=== PATIENT | female | born 1935 | race Caucasian/White ===

== ENCOUNTER 2021-10-22 09:24 | Outpatient (CLI) | payer MEDICARE, OTHER | END 2021-10-22 09:25 | disposition home or self-care (01) | LOC: NAV RAD 09:24 | PROVIDERS: ATTEND Family Medicine | DX: R05.9 Cough, unspecified (principal) | CPT/HCPCS: 71046 ==

== ENCOUNTER 2022-02-23 09:02 | Emergency (ER) | payer MEDICARE, OTHER ==
[2022-02-23] MEDS ORDERED: predniSONE 20 MG TAB ONE (10:38)
== END 2022-02-23 11:25 | disposition home or self-care (01) ==
LOC: NAV ERS 09:02
DX: U07.1 COVID-19 (principal); J20.8 Acute bronchitis due to other specified organisms; Z87.891 Personal history of nicotine dependence
CPT/HCPCS: 71046; 87804 ×2; U0003; U0005; J7512; J7620

== ENCOUNTER 2022-11-15 15:48 | Outpatient (CLI) | payer MEDICARE, OTHER | END 2022-11-15 15:49 | disposition home or self-care (01) | LOC: NAV RAD 15:48 | PROVIDERS: ATTEND Nurse Practitioner Family | DX: J06.9 Acute upper respiratory infection, unspecified (principal) | CPT/HCPCS: 71046 ==